=== PATIENT | male | born 1950 | race American Indian/Alaskan Native ===

== ENCOUNTER 2018-09-01 00:55 | Emergency (ER) | payer MEDICARE, OTHER ==
[2018-09-01 01:11] VITALS: BP 113/99
[2018-09-01] MEDS ORDERED: XYLOCAINE CARDIAC IV ONE (01:20)
[2018-09-01] MEDS ORDERED: ADRENALIN ONE (01:20)
[2018-09-01] MEDS ORDERED: VERSED IV ONE (01:20)
[2018-09-01] MEDS ORDERED: CORDARONE IV ONE (01:20)
[2018-09-01] MEDS ORDERED: AMIDATE IV ONE (01:20)
[2018-09-01] MEDS ORDERED: ATROPINE 0.1% (CARDIAC) ONE (01:20)
[2018-09-01] MEDS ORDERED: MAGNESIUM SULFATE ONE (01:20)
[2018-09-01] MEDS ORDERED: ZEMURON IV ONE (01:20)
[2018-09-01] MEDS ORDERED: NACL 0.9% 1000 ML 1,000 ML ONE (01:28)
[2018-09-01] MEDS ORDERED: VASELINE LIP THERAPY TP PRN (01:31)
[2018-09-01] MEDS ORDERED: NACL 0.9% 1000 ML 1,000 ML IV ONE (01:31)
[2018-09-01] MEDS ORDERED: ARTIFICIAL TEARS OPHTH OINT OU PRN (01:31)
[2018-09-01] MEDS ORDERED: NACL 0.9% 1000 ML IV ONE (01:31)
[2018-09-01] MEDS ORDERED: VERSED IV PRN (01:31)
[2018-09-01] MEDS ORDERED: SUBLIMAZE IV PRN (01:31)
[2018-09-01] MEDS ORDERED: MIDAZOLAM 100 MG in NACL 0.9% 80 ML IV SCH (02:00)
[2018-09-01] MEDS ORDERED: fentaNYL DRIP Premix 2,000 MCG/100 ML BAG IV SCH (02:00)
[2018-09-01] MEDS ORDERED: ROCEPHIN/NS 2 GM/100 ML 2 GM/100 ML BAG IV SCH (02:00)
[2018-09-01] MEDS ORDERED: LEVOPHED DRIP 4 MG/NS 250 ML 4 MG/250 ML BAG IV ONE (02:06)
[2018-09-01 02:23] LABS: Hematocrit 43.1 % (35.5-45.6); Mean Corpuscular HGB Conc 32 % (32-34); Mean Corpuscular Volume 107 fl (84-94); Platelet Count 147 K/mm3 (140-440); Red Blood Count 4.02 M/mm3 (3.65-5.03); Red Cell Distribution Width 16.2 % (13.2-15.2)
--- NOTE | 2018-09-01 02:26 | Emergency Department Report ---
ED General Adult HPI - General Chief complaint: Altered Mental Status Stated complaint: FALL/CARLOS Time Seen by Provider: 09/01/18 01:12 Source: family, EMS (ems notes not available at time of chart dictation), RN notes reviewed Mode of arrival: Stretcher Limitations: Physical Limitation - History of Present Illness Initial comments: This is a 67-year-old gentleman. The patient is not known to this provider previously. History obtained from nursing staff, and from [facility]. Apparently, the patient fell earlier on today. He reportedly landed on his right leg. The fianc is not sure if he hit his head. Emergency medical services were contacted. Apparently after falling, a period of time elapsed and the patient became altered, as for his fiance. There is no EMS documentation of glucose checked that I'm aware of. EMS notes are not available at this time for collateral information. The [facility] is not able to provide additional information. Upon initial evaluation, the patient is breathing sonorously, eyes do not open spontaneously, he does not follow commands, he is desaturating on room air, and not moving extremities spontaneously. He does not have a gag reflex. Given hypoxia, altered mental status, reported history of trauma, patient emergently intubated. Patient placed on nasal cannula at 15 L/m. He receives C-spine immobilization from nursing team. He receives [id number]-[id number] ventilation. He is premedicated with 100 mg of lidocaine, and 20 mg of etomidate. Video laryngoscopy is performed with a curved Mirza 3 blade, excellent visualization of the cords was obtained, and a bougie catheter is inserted into the trachea, and a 7.5 endotracheal tube was then inserted into the trachea, under direct visualization. Post intubation breath sounds are appreciated, and the patient has appropriate end tidal color change. Shortly after intubation, the patient became bradycardic and lost pulses. Patient had a prolonged resuscitation as per ACLS protocol. Please see nursing code sheet. Patient initially called as a code trauma, and plan was to work up patient for code trauma and code sepsis. Unfortunately, pulses cannot be obtained after prolonged resuscitation, and resuscitation efforts were terminated secondary to medical futility. -: unknown Radiation: other Quality: other Consistency: other Improves with: other Worsens with: other Associated Symptoms: other - Related Data Home Medications Medication Instructions Recorded Confirmed Last Taken Carvedilol [Coreg] 12.5 mg PO BID 05/15/14 05/15/14 05/14/14 Lisinopril 10 mg PO BID 05/15/14 05/15/14 05/14/14 Metformin HCl [Fortamet] 1,000 mg PO BID 05/15/14 05/15/14 05/14/14 glyBURIDE 20 mg PO BID 05/15/14 05/15/14 05/14/14 Previous Rx's Medication Instructions Recorded Last Taken Type Ibuprofen [Motrin] 800 mg PO Q8H #30 tablet 05/15/14 Unknown Rx traMADol [Ultram 50 MG tab] 50 mg PO Q6HR PRN #20 tablet 05/15/14 Unknown Rx Allergies Allergy/AdvReac Type Severity Reaction Status Date / Time Penicillins Allergy Rash Verified 12/13/12 12:56 ED Review of Systems ROS: Stated complaint: FALL/CARLOS Other details as noted in HPI Comment: Unobtainable due to pts medical conditions ED Past Medical Hx - Past Medical History Hx Hypertension: Yes Hx Congestive Heart Failure: Yes Hx Diabetes: Yes Additional medical history: Herniated disc - Surgical History Additional Surgical History: Cervical disc removal - Social History Smoking Status: Former Smoker Substance Use Type: None - Medications Home Medications: Home Medications Medication Instructions Recorded Confirmed Last Taken Type Carvedilol [Coreg] 12.5 mg PO BID 05/15/14 05/15/14 05/14/14 History Ibuprofen [Motrin] 800 mg PO Q8H #30 tablet 05/15/14 Unknown Rx Lisinopril 10 mg PO BID 05/15/14 05/15/14 05/14/14 History Metformin HCl [Fortamet] 1,000 mg PO BID 05/15/14 05/15/14 05/14/14 History glyBURIDE 20 mg PO BID 05/15/14 05/15/14 05/14/14 History traMADol [Ultram 50 MG tab] 50 mg PO Q6HR PRN #20 tablet 05/15/14 Unknown Rx ED Physical Exam - General Limitations: Altered Mental Status, Physical Limitation General appearance: obtunded - Head Head exam: Present: atraumatic, normocephalic - Eye Eye exam: Present: normal appearance, PERRL, EOMI - ENT ENT exam: Present: normal exam, normal orophraynx, mucous membranes moist - Neck Neck exam: Present: normal inspection. Absent: tenderness, meningismus - Respiratory Respiratory exam: Present: respiratory distress - Cardiovascular Cardiovascular Exam: Present: regular rate, normal rhythm. Absent: systolic murmur, diastolic murmur, rubs, gallop - GI/Abdominal GI/Abdominal exam: Present: soft, distended. Absent: tenderness, guarding, rigid, pulsatile mass - Rectal Rectal exam: Present: normal inspection, normal rectal tone. Absent: heme (-) stool - exam: Present: normal inspection - Extremities Exam Extremities exam: Present: normal inspection, pedal edema, other (2+ pulses noted in the bilateral upper, lower extremities. Compartments soft. No long bony tenderness. The pelvis is stable.). Absent: calf tenderness - Back Exam Back exam: Present: normal inspection. Absent: paraspinal tenderness, vertebral tenderness - Neurological Exam Neurological exam: Present: altered, other (initially presents with GCS of 3) - Psychiatric Psychiatric exam: Present: other (the patient is nonverbal) - Skin Skin exam: Present: warm ED Course Vital Signs 09/01/18 09/01/18 01:07 01:40 Temperature 97.5 F L Pulse Rate 82 128 H Respiratory 22 Rate Blood Pressure 113/99 O2 Sat by Pulse 95 96 Oximetry - Reevaluation(s) Reevaluation #1: 09/01/18 02:29 Patient had a fever rectally of 100.8. - Central Line Placement Left Femoral Consent Obtained: emergent situation Time Out Performed: Yes Patient Placed on Monitor/Pulse Ox: Yes MD Prep: mask, gown, gloves Central Line Prep: Povidone-Iodine 1% Ultrasound Used for Placement: Yes Central Line Lumen Inserted: triple Bloods Obtained for Lab: Yes Central Line Position: good blood return Dressing Applied: Tegaderm Patient Tolerated Procedure: well Complications: none - Intubation Time Out Performed: No (emergency situation) Sedative: Etomidate Mg Given: 20 Paralytic: Rocuronium Mg Given: 100 Laryngoscope: fiberoptic video scope Size: 4 Assist Device Used: Bougie ET Tube Size: 7.5 Tube Secured Depth (cm): 23 Tube Secured Location: teeth Tube Placement Confirmation: visualized tube passing t, equal breath sounds bilat, no breath sounds over epi, confirmation by capnometr Patient Tolerated Procedure: well Intubation Complications: none Additional Comments: Patient placed on nasal cannula at 15 L/m. Has simultaneous cervical spine immobilization. Receives [id number] ventilation, with 5 cm of PEEP valve. Intubated with one attempt with no difficulty. ED Medical Decision Making - Lab Data Result diagrams: 09/01/18 02:13 09/01/18 02:13 Vital Signs 09/01/18 01:07 Temperature 97.5 F L Pulse Rate 82 Respiratory 22 Rate Blood Pressure 113/99 O2 Sat by Pulse 95 Oximetry - EKG Data 09/01/18 02:29 EKG is limited by motion artifact. This is a normal sinus rhythm, right axis deviation, QTC within normal limits, motion artifact, the EKG is abnormal, the EKG is not consistent with ST elevation myocardial infarction - Medical Decision Making Differential diagnosis, including but not limited to: Intracranial injury, cervical spine injury, meningitis, bacteremia, sepsis, electrolyte derangement, hyperkalemia Critical Care Time: Yes Critical care time in (mins) excluding proc time.: 60 Critical care attestation.: If time is entered above; I have spent that time in minutes in the direct care of this critically ill patient, excluding procedure time. ED Disposition Clinical Impression: Respiratory arrest, Encephalopathy, Cardiac arrest Disposition: DC-20 Is pt being admited?: No Does the pt Need Aspirin: No Condition: Undetermined Referrals: AUSTIN QUINTERO MD [Primary Care Provider] - 3-5 Days
[2018-09-01 02:36] LABS: INR 1.99 (0.87-1.13)
[2018-09-01 02:43] LABS: Calcium 9.5 mg/dL (8.4-10.2)
[2018-09-01 02:45] LABS: Albumin 2.1 g/dL (3.9-5); Calcium 9.1 mg/dL (8.4-10.2)
[2018-09-01 03:06] LABS: Chol/HDL Ratio 2.8 %
[2018-09-01 04:14] LABS: Basophils % (Manual) 0 % (0.0-1.8); Eosinophils % (Manual) 0 % (0.0-4.3); Large Platelets 1+; Macrocytosis 1+; Platelet Estimate Consistent w Auto; Poikilocytosis 1+; Total Cells Counted 100
== END 2018-09-01 03:00 ==
LOC: ED 00:55
DX: I50.9 Heart failure, unspecified (principal); G93.40 Encephalopathy, unspecified; R09.2 Respiratory arrest; I11.0 Hypertensive heart disease with heart failure; E11.9 Type 2 diabetes mellitus without complications; Z87.891 Personal history of nicotine dependence; Z98.890 Other specified postprocedural states; Z79.899 Other long term (current) drug therapy; Z88.0 Allergy status to penicillin
CPT/HCPCS: 31500; 36415; 36556; 80048; 80053; 80061; 82140; 82550; 82962; 84484; 85007; 85025; 85610; 85730; 93005; 93010; 99291; J0171; J0282; J0461; J0696; J2001; J2250; J3475; J7030; 80320; 94002; G0480